=== PATIENT | female | born 1990 | race Caucasian/White ===

== ENCOUNTER → 2017-03-08 | Outpatient (CLI) | payer MEDICAID ==
[2017-03-08 14:27] LABS: Basophils % (A) 0 %; CH 32.6; CHCM 34.5; Eosinophils # (A) 0.1 k/uL (0-0.7); Eosinophils % (A) 1 %; HCT 34.1 % (34.0-46.0); HDW 2.97; HGB 11.4 gm/dL (11.4-16.0); Luc # (Auto) 0.17; Luc % (Auto) 2; Lymphocytes # (A) 1.2 k/uL (1.0-4.8); Lymphocytes % (A) 13 %; MCH 31.8 pg (25.0-35.0); MCHC 33.3 g/dL (31.0-37.0); MCV 95.4 fL (80.0-100.0); Mean Platelet Volume 7.3; Monocytes # (A) 0.6 k/uL (0-1.0); Monocytes % (A) 6 %; Neutrophils # (A) 6.9 k/uL (1.3-7.7); Neutrophils % (A) 77 %; RBC 3.58 m/uL (3.80-5.40); RDW 14.2 % (11.5-15.5); WBC 8.9 k/uL (3.8-10.6); WBC (Perox) 9.17
== END | disposition home or self-care (01) ==
LOC: LABWHC1 12:56
PROVIDERS: ATTEND Obstetrics & Gynecology
DX: O99.810 Abnormal glucose complicating pregnancy (principal); O99.019 Anemia complicating pregnancy, unspecified trimester; Z3A.00 Weeks of gestation of pregnancy not specified
CPT/HCPCS: 36415; 82950; 85025

== ENCOUNTER 2018-10-27 07:41 | Emergency (ER) | payer MEDICAID ==
--- NOTE | 2018-10-27 08:42 | ED ---
Female Urogenital HPI - General Chief complaint: Vaginal Bleeding Stated complaint: POSS MISCARRAGE, 10 WEEKS Time Seen by Provider: 10/27/18 07:51 Source: patient, RN notes reviewed Mode of arrival: ambulatory Limitations: no limitations - History of Present Illness Initial comments: This a 28-year-old female presents emergency Department with chief complaint of vaginal bleeding and . 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 Patient states isn't profuse amount of bleeding. Patient states that she is A0 and sees Dr. Mai for her [employer]. Patient is O+ blood type. Patient denies any current dysuria, cramping, abdominal pain, back pain. - Related Data Home Medications Medication Instructions Recorded Confirmed Pnv,Calcium 72/Iron/Folic Acid 1 tab PO DAILY 05/29/17 06/01/17 [ Plus Tablet] azaTHIOprine [Imuran] 50 mg PO DAILY 05/29/17 06/01/17 Allergies Allergy/AdvReac Type Severity Reaction Status Date / Time No Known Allergies Allergy Verified 10/27/18 07:49 Review of Systems ROS Statement: Those systems with pertinent positive or pertinent negative responses have been documented in the HPI. ROS Other: All systems not noted in ROS Statement are negative. Past Medical History Additional Past Medical History / Comment(s): Ulcerative Colitis, HSV History of Any Multi-Drug Resistant Organisms: None Reported Additional Past Surgical History / Comment(s): Colonoscopies Past Anesthesia/Blood Transfusion Reactions: No Reported Reaction Past Psychological History: No Psychological Hx Reported Smoking Status: Never smoker Past Alcohol Use History: None Reported Past Drug Use History: None Reported - Past Family History Mother Family Medical History: No Reported History General Exam Limitations: no limitations General appearance: alert, in no apparent distress Head exam: Present: atraumatic, normocephalic, normal inspection Neck exam: Present: normal inspection. Absent: tenderness, meningismus, lymphadenopathy Respiratory exam: Present: normal lung sounds bilaterally. Absent: respiratory distress, wheezes, rales, rhonchi, stridor Cardiovascular Exam: Present: regular rate, normal rhythm, normal heart sounds. Absent: systolic murmur, diastolic murmur, rubs, gallop, clicks GI/Abdominal exam: Present: soft, normal bowel sounds. Absent: distended, tenderness, guarding, rebound, rigid Neurological exam: Present: alert, oriented X3, CN II-XII intact Skin exam: Present: warm, dry, intact, normal color. Absent: rash Course Vital Signs 10/27/18 07:47 Temperature 98.4 F Pulse Rate 109 H Respiratory 20 Rate Blood Pressure 137/87 O2 Sat by Pulse 99 Oximetry Medical Decision Making - Medical Decision Making 20-year-old female presents emergency Department for vaginal bleeding and . Patient had an ultrasound which shows viable single IUP 10 weeks and 3 days, very large subchorionic bleed. This most is causing her symptoms at this time. She is to follow-up with [employer]. She has a positive blood type does not require RhoGAM. - Lab Data Result diagrams: 10/27/18 08:29 Lab Results 10/27/18 10/27/18 Range/Units 08:29 08:29 WBC 7.5 (3.8-10.6) k/uL RBC 4.47 (3.80-5.40) m/uL Hgb 13.6 (11.4-16.0) gm/dL Hct 40.2 (34.0-46.0) % MCV 90.0 (80.0-100.0) fL MCH 30.4 (25.0-35.0) pg MCHC 33.8 (31.0-37.0) g/dL RDW 14.2 (11.5-15.5) % Plt Count 213 (150-450) k/uL Neutrophils % 80 % Lymphocytes % 12 % Monocytes % 5 % Eosinophils % 1 % Basophils % 1 % Neutrophils # 6.0 (1.3-7.7) k/uL Lymphocytes # 0.9 L (1.0-4.8) k/uL Monocytes # 0.4 (0-1.0) k/uL Eosinophils # 0.1 (0-0.7) k/uL Basophils # 0.0 (0-0.2) k/uL Urine Color Red Urine Appearance Bloody H (Clear) Urine RBC >182 H (0-5) /hpf Ur Squamous Epith Cells 4 (0-4) /hpf Urine Bacteria Rare H (None) /hpf Hyaline Casts 38 H (0-2) /lpf Urine Mucus Many H (None) /hpf Urine Sperm Few H (None) /hpf Disposition Clinical Impression: Subchorionic bleed Disposition: HOME SELF-CARE Condition: Stable Instructions (If sedation given, give patient instructions): Subchorionic Hemorrhage (ED) Additional Instructions: Please return to the Emergency Department if symptoms worsen or any other concerns. Is patient prescribed a controlled substance at d/c from ED?: No Referrals: Carey Esqueda MD [Primary Care Provider] - 1-2 days Time of Disposition: 09:19
[2018-10-27 08:47] LABS: Basophils % (A) 1 %; Eosinophils # (A) 0.1 k/uL (0-0.7); Eosinophils % (A) 1 %; HCT 40.2 % (34.0-46.0); HGB 13.6 gm/dL (11.4-16.0); Lymphocytes # (A) 0.9 k/uL (1.0-4.8); Lymphocytes % (A) 12 %; MCH 30.4 pg (25.0-35.0); MCHC 33.8 g/dL (31.0-37.0); Mean Platelet Volume 7.2; Monocytes # (A) 0.4 k/uL (0-1.0); Monocytes % (A) 5 %; Neutrophils % (A) 80 %; Platelet Count 213 k/uL (150-450); RBC 4.47 m/uL (3.80-5.40); RDW 14.2 % (11.5-15.5); WBC 7.5 k/uL (3.8-10.6)
[2018-10-27 08:55] LABS: Bacteria,Urine Rare /hpf; Hyaline Casts,Urine 38 /lpf (0-2); Mucus,Urine Many /hpf; RBC,Urine >182 /hpf (0-5); Sperm,Urine Few /hpf; Squamous Epithelial Cell,Urine 4 /hpf (0-4)
--- NOTE | 2018-10-27 08:56 | US ---
EXAMINATION TYPE: Transabdominal DATE OF EXAM: 10/27/2018 8:46 AM COMPARISON: NONE CLINICAL HISTORY: Pain. Pt states heavy vaginal bleeding that started this AM EXAM PERFORMED: EXAM MEASUREMENTS: GESTATIONAL AGE / DATING Physician Established: Not yet established Dates by LMP: (10 weeks/2 days) EDC: 05/23/2019 Dates by First Scan: No prior Dates by Current Scan for: (10 weeks/3 days) EDC: 05/22/2019 MATERNAL ANATOMY Uterus: 14.1 x 7.6 x 9.6 cm Right Ovary: Unable to visualize Left Ovary: 3.3 x 2.6 x 2.1 cm Post CDS / Adnexa: wnl Presence of free fluid: No Presence of corpus luteal cyst: Left Ovary= 2.1 x 1.3 x 1.7 cm Presence of subchorionic bleed: Anterior to gestational sac, large bleed= 6.3 x 3.5 x 7.5 cm GESTATION / SURVEY CRL: 3.5 cm (10 weeks/3 days) MSD: wnl Heart Rate: 170 bpm Rhythm: Normal IUP: Viable IUP Date of LMP: 08/16/2018 Single, viable IUP, Large sub-chorionic bleed IMPRESSION: VIABLE INTRAUTERINE GESTATION WITH A GESTATIONAL AGE OF 10 WEEKS 3 DAYS +/- 5 DAYS. ESTIMATED DATE OF CONFINEMENT BASED ON THIS EXAMINATION IS 05/22/2019. PLEASE NOTE THE PRESENCE OF A LARGE SUBCHORIONIC BLEED.
[2018-10-27 09:01] LABS: Color,Urine Red
[2018-10-27 09:02] LABS: Appearance,Urine Bloody (Clear)
[2018-10-27 09:55] VITALS: BP 112/78; PULSE 86; RESP 18; TEMP 98.3
== END 2018-10-27 09:55 | disposition home or self-care (01) ==
LOC: EC 07:41
DX: O41.8X10 Other specified disorders of amniotic fluid and membranes, first trimester, not applicable or unspecified (principal); Z3A.10 10 weeks gestation of pregnancy
CPT/HCPCS: 36415; 76801; 81001; 84702; 85025; 99284

== ENCOUNTER → 2018-11-13 | Outpatient (CLI) | payer MEDICAID | END | disposition home or self-care (01) | LOC: LABWHC1 13:44 | PROVIDERS: ATTEND Physician Assistant | DX: Z11.1 Encounter for screening for respiratory tuberculosis (principal) | CPT/HCPCS: 36415; 86480 ==

== ENCOUNTER → 2018-11-13 | Outpatient (CLI) | payer MEDICAID ==
--- NOTE | 2018-11-13 15:42 | US ---
EXAMINATION TYPE: Transabdominal DATE OF EXAM: 11/13/2018 1:41 PM COMPARISON: US CLINICAL HISTORY: Z36 F/U previous abn O41.8x90. F/U prev sub-chorionic bleed, pt states still having light vaginal bleeding EXAM PERFORMED: Transabdominal (TA) EXAM MEASUREMENTS: GESTATIONAL AGE / DATING Physician Established: (12 weeks/5 days) EDC: 05/23/2019 Dates by LMP: (12 weeks/5 days) EDC: 05/23/2019 Dates by First Scan: (12 weeks/6 days) EDC: 05/22/2019 Dates by Current Scan for: (13 weeks/0 days) EDC: 05/21/2019 MATERNAL ANATOMY Uterus: 12.0 x 7.7 x 10.1 cm Right Ovary: 2.5 x 1.6 x 1.7 cm Left Ovary: 3.1 x 1.7 x 2.0 cm Post CDS / Adnexa: wnl Presence of free fluid: No Presence of corpus luteal cyst: Left Ovary= Presence of subchorionic bleed: Lower Uterine segment= 4.7 x 1.8 x 7.6 cm GESTATION / SURVEY CRL: 6.7 cm (13 weeks/0 days) Heart Rate: 162 bpm Rhythm: Normal IUP: Viable IUP Nuchal Translucency 10-14wks (normal less than 3mm): 2mm Single, viable IUP/ Sub-chorionic bleed appears similar in size when compared to previous, more hyp oechoic/ Questionable abnormality within the brain in images #15, 23, and 34 IMPRESSION: Subchorionic hemorrhage has evolved somewhat in the interval and is more hypoechoic. Single viable in trauterine corresponding to ultrasound age of 13 weeks 0 days with estimated date of delive ry 05/21/2019. Question abnormal appearance seen on images of the calvarium, follow-up survey r ecommended. A Yellow level critical message alert has been initiated for Arsenio Smith DO via the [employer] Critical Results System on 11/13/2018 3:40 PM. This message alert has been sent to Kelly Turner via the preferences provided by the clinician for the receipt of Radiology Critical Findings. Short Fuze ID [id number].
== END | disposition home or self-care (01) ==
LOC: RADUSWWP 13:26
PROVIDERS: ATTEND Obstetrics & Gynecology
DX: O41.8X90 Other specified disorders of amniotic fluid and membranes, unspecified trimester, not applicable or unspecified (principal); Z3A.13 13 weeks gestation of pregnancy
CPT/HCPCS: 76801; 76813

== ENCOUNTER → 2018-12-24 | Outpatient (CLI) | payer MEDICAID ==
[2018-12-24 09:42] LABS: HCT 39.4 % (34.0-46.0); HGB 12.8 gm/dL (11.4-16.0); MCH 29.9 pg (25.0-35.0); MCHC 32.6 g/dL (31.0-37.0); MCV 91.7 fL (80.0-100.0); Mean Platelet Volume 6.3; Platelet Count 240 k/uL (150-450); RBC 4.29 m/uL (3.80-5.40); RDW 13.7 % (11.5-15.5); WBC 7.8 k/uL (3.8-10.6)
[2018-12-24 19:00] LABS: African American GFR (CKD) 143.8 (60.0-200.0)
== END | disposition home or self-care (01) ==
LOC: LABWHC1 06:43
PROVIDERS: ATTEND Obstetrics & Gynecology
DX: Z34.82 Encounter for supervision of other normal pregnancy, second trimester (principal); K51.50 Left sided colitis without complications
CPT/HCPCS: 36415; 82565; 82947; 85027; 86762; 86780; 86850; 86900; 86901; 87340

== ENCOUNTER → 2019-02-18 | Outpatient (CLI) | payer MEDICAID ==
[2019-02-18 12:00] LABS: HCT 36.3 % (34.0-46.0); HGB 12.5 gm/dL (11.4-16.0); MCHC 34.4 g/dL (31.0-37.0); MCV 93.2 fL (80.0-100.0); Mean Platelet Volume 6.7; Platelet Count 216 k/uL (150-450); RDW 13.9 % (11.5-15.5); WBC 8.6 k/uL (3.8-10.6)
== END | disposition home or self-care (01) ==
LOC: LABWHC1 09:43
PROVIDERS: ATTEND Obstetrics & Gynecology
DX: Z34.82 Encounter for supervision of other normal pregnancy, second trimester (principal)
CPT/HCPCS: 36415; 82950; 85027

== ENCOUNTER → 2019-04-01 | Outpatient (CLI) | payer MEDICAID ==
--- NOTE | 2019-04-01 16:00 | US ---
EXAMINATION TYPE: US OB >= 14 wk fetus DATE OF EXAM: 04/01/2019 COMPARISON: US CLINICAL HISTORY: O36.63XO large for dates, third trimester, TECHNIQUE: Transabdominal (TA) GESTATIONAL AGE / DATING Physician Established: (32 weeks/4 days) EDC: 05/23/2019 Dates by LMP: (32 weeks/4 days) EDC: 05/23/2019 Dates by First Scan: (32 weeks/5 days) EDC: 05/22/2019 Dates by Current Scan: (32 weeks/2 days) EDC: 05/25/2019 Beta HCG (if available): NA SURVEY IUP: Single PLACENTA: Fundal posterior PREVIA: No Previa YUNIOR 17.8: cm Normal CERVICAL LENGTH (transabdominal: norm > 3.0cm): 3.1 cm BIOMETRY PRESENTATION: Vertex LIE: Longitudinal BPD: 8.0 cm 32 weeks / 0 days HC: 29.6 cm 32 weeks / 5 days AC: 28.4 cm 32 weeks / 3 days FL: 6.2 cm 32 weeks / 0 days ESTIMATED WEIGHT IN GRAMS: 1936.0 grams ESTIMATED WEIGHT IN LBS/OZ: 4 lbs. 4 oz. WEIGHT PERCENTAGE BASED ON ESTABLISHED DATES: 30.3% HC/AC: 1.04 Normal FL/AC: 21.68 Normal HEART RATE: 145 bpm RHYTHM: Normal Single, live IUP, 32 weeks/2 days, EDC: 05/25/2019, HR 145bpm. IMPRESSION: Single live intrauterine with a sonographic age of 32 weeks and 2 days and carlos manuel mated date of delivery of 05/25/2019. Weight percentage based on established dates of 30.3%. Amniotic fluid index measures 17.8 cm.
== END | disposition home or self-care (01) ==
LOC: RADUSWWP 14:54
PROVIDERS: ATTEND Obstetrics & Gynecology
DX: O36.63X0 Maternal care for excessive fetal growth, third trimester, not applicable or unspecified (principal); Z3A.32 32 weeks gestation of pregnancy
CPT/HCPCS: 76805

== ENCOUNTER 2019-05-03 01:29 | Outpatient (CLI) | payer MEDICAID ==
[2019-05-03 02:16] LABS: Appearance,Urine Clear (Clear); Bilirubin,Urine Negative (Negative); Blood,Urine Small (Negative); Color,Urine Yellow; Glucose,Urine (UA) Negative (Negative); Ketones,Urine Negative (Negative); Leukocyte Esterase,Urine Large (Negative); Mucus,Urine Rare /hpf; Nitrite,Urine Negative (Negative); Protein,Urine Negative (Negative); RBC,Urine 1 /hpf (0-5); Squamous Epithelial Cell,Urine 4 /hpf (0-4); Urobilinogen,Urine <2.0 mg/dL (<2.0); WBC,Urine 13 /hpf (0-5)
[2019-05-03 03:08] VITALS: BP 134/100; PULSE 107; RESP 18; TEMP 97.2
--- NOTE | 2019-05-04 08:00 | P.MSEPDOC ---
Presenting Problems - Arrival Data Date of Arrival on Unit: 05/03/19 Time of Arrival on Unit: 01:29 Mode of Transport: Ambulatory - Complaint OB-Reason for Admission/Chief Complaint: Possible Onset of Labor Comment: pt presents to triage for contractions and pelvic pressure Medical History - Information : 2 Para: 1 Term: 1 : 0 Abortions: Spontaneous or Elective: 0 Number of Living Children: 1 - Gestational Age Gestational Age by VIDA (wks/days): 37 Weeks and 1 Days - History Complications: GBS+ Review of Systems - Review of Systems Constitutional: No problems Breast: No problems ENT: No problems Cardiovascular: No problems Respiratory: No problems Gastrointestinal: No problems Genitourinary: No problems Musculoskeletal: No problems Neurological: No problems Skin: No problems Vital Signs - Temperature Temperature: 97.2 F Temperature Source: Temporal Artery Scan - Pulse Right Brachial Pulse Rate: 107 Pulse Assessment Method: Automatic Cuff - Respirations Respiratory Rate: 18 Oxygen Delivery Method: Room Air O2 Sat by Pulse Oximetry: 100 - Blood Pressure Right Arm Blood Pressure: 134/100 Blood Pressure Mean: 111 Blood Pressure Source: Automatic Cuff Medical Screen Scoring (Pre) - Cervical Exam Dilation: 4-7 cm = 2 Effacement: More than 50% = 2 Membranes: Intact - Uterine Contractions Frequency: > 5 minutes apart = 1 Duration: > 40 seconds = 2 Intensity: N/A - Maternal Vital Signs Maternal Temperature: N/A Maternal Blood Pressure: Diastolic > 89 = 1 Signs of Preeclampsia: N/A Maternal Respirations: N/A - Maternal Trauma Maternal Trauma: N/A - Assessment - Baby A Baseline FHR: 150 Heart Rate - NICHD Category: Category I (Normal) = 0 NST: Reactive Position: N/A Station: N/A - Total Score - Baby A Total Score - Baby A: 8 - Total Score - Baby B Total Score - Baby B: 8 - Total Score - Baby C Total Score - Baby C: 8 - Level of Risk - Baby A Level of Risk - Baby A: Medium (6-9) - Level of Risk - Baby B Level of Risk - Baby B: Medium (6-9) - Level of Risk - Baby C Level of Risk - Baby C: Medium (6-9) Physician Notification (Pre) - Physician Notified Physician Notified Date: 05/03/19 Physician Notified Time: 02:17 New Order Received: Yes - Notification Comment Comment: ua was sent, no protein noted, serial bp's done, pressures came down, no cervical manager of change an hour, pt discharged home with review of s/s of labor, kick counts and symptoms to watch for and return for evaluation for preeclampsia Disposition - Disposition OB Disposition: Triage, Discharge to home Discharge Date: 05/03/19 Discharge Time: 02:50 I agree with the RN Medical Screening Exam: Yes Risk & Benefit of care provided described in d/c instruction: Yes Diagnosis: FALSE LABOR AT OR AFTER 37 COMPLETED WEEKS OF GESTATION
== END 2019-05-03 02:50 | disposition home or self-care (01) ==
LOC: FBPOP 01:29
PROVIDERS: ATTEND Obstetrics & Gynecology
DX: O47.1 False labor at or after 37 completed weeks of gestation (principal); Z3A.37 37 weeks gestation of pregnancy
CPT/HCPCS: 59025; 81001; 99213

== ENCOUNTER 2019-05-04 03:05 | Inpatient (IN) | payer MEDICAID ==
[2019-05-04] MEDS ORDERED: AMPICILLIN 2,000 MG in SODIUM CHLORIDE 0.9% 100 ML IVPB STA (03:36)
[2019-05-04] MEDS ORDERED: CARBOPROST TROMETHAMINE 250 MCG/ML 1 ML AMP IM PRN (03:36)
[2019-05-04] MEDS ORDERED: TERBUTALINE 1 MG/ML VIAL SQ PRN (03:36)
[2019-05-04] MEDS ORDERED: METHYLERGONOVINE 0.2 MG/ML 1 ML AMP IM PRN (03:36)
[2019-05-04] MEDS ORDERED: LIDOCAINE 0.5% (PF) 5 MG/ML (50 ML SDV) SQ PRN (03:36)
[2019-05-04] MEDS ORDERED: OXYTOCIN 10 UNIT/ML 1 ML VIAL IM PRN (03:36)
[2019-05-04] MEDS ORDERED: LACTATED RINGERS 1,000 ML IV SCH (03:45)
[2019-05-04] MEDS ORDERED: OXYTOCIN 30 UNITS/500 ML NS 30 UNIT in SALINE 1 500ML.BAG IV SCH (03:45)
[2019-05-04 04:12] LABS: Basophils % (A) 1 %; Eosinophils # (A) 0.1 k/uL (0-0.7); Eosinophils % (A) 1 %; HCT 36.5 % (34.0-46.0); HGB 12.4 gm/dL (11.4-16.0); Lymphocytes # (A) 1.2 k/uL (1.0-4.8); Lymphocytes % (A) 17 %; MCHC 33.9 g/dL (31.0-37.0); MCV 91.3 fL (80.0-100.0); Mean Platelet Volume 7.2; Monocytes # (A) 0.5 k/uL (0-1.0); Monocytes % (A) 7 %; Neutrophils # (A) 5.2 k/uL (1.3-7.7); Neutrophils % (A) 73 %; Platelet Count 197 k/uL (150-450); RDW 13.2 % (11.5-15.5); WBC 7.2 k/uL (3.8-10.6)
[2019-05-04 04:53] VITALS: BMI 22.1
[2019-05-04] MEDS ORDERED: ROPIVACAINE 5MG/ML 20ML VIAL ONE (06:05)
[2019-05-04] MEDS ORDERED: SODIUM CHLORIDE 0.9% 100 ML BAG ONE (06:05)
[2019-05-04] MEDS ORDERED: fentaNYL (PF) 50 MCG/ML 5 ML AMP ONE (06:05)
--- NOTE | 2019-05-04 06:54 | P.HPOB ---
History of Present Illness H&P Date: 05/04/19 Chief Complaint: Spontaneous rupture membranes This is a 28-year-old female 2 para 1 with an estimated date of confinement of 05/23/2019, estimated gestational age of 37-2/7 weeks, who presented to labor and delivery with complaints of spontaneous rupture membranes at approximately 2 AM this morning. She denies feeling any regular contractions at that time. course has been uncomplicated and has been with Dr. Smith. labs: Blood type-O+ Antibody screen-negative Hemoglobin-12.8 Hepatitis B surface antigen-nonreactive Rubella-immune Random glucose-67 Syphilis antibody-nonreactive 1 hour Glucola-P3 Group B streptococcus-positive Obstetrical history: . History of 1 vaginal delivery at term. Gynecologic history: History of herpes. Social history: She is single. She works as an RN. Review of Systems Constitutional: Denies chills, Denies fever Eyes: denies blurred vision, denies pain Ears, nose, mouth and throat: Denies headache, Denies sore throat Cardiovascular: Denies chest pain, Denies shortness of breath Respiratory: Denies cough Gastrointestinal: Reports abdominal pain Genitourinary: Reports pelvic pain, Reports Musculoskeletal: Reports low back pain Integumentary: Denies pruritus, Denies rash Neurological: Denies numbness, Denies weakness Psychiatric: Denies anxiety, Denies depression Past Medical History Additional Past Medical History / Comment(s): Ulcerative Colitis, HSV History of Any Multi-Drug Resistant Organisms: None Reported Past Surgical History: No Surgical Hx Reported Additional Past Surgical History / Comment(s): Colonoscopies Past Anesthesia/Blood Transfusion Reactions: No Reported Reaction Past Psychological History: No Psychological Hx Reported Smoking Status: Never smoker Past Alcohol Use History: None Reported Past Drug Use History: None Reported - Past Family History Mother Family Medical History: No Reported History Medications and Allergies Home Medications Medication Instructions Recorded Confirmed Type Pnv,Calcium 72/Iron/Folic Acid 1 tab PO DAILY 05/29/17 05/04/19 History [ Plus Tablet] azaTHIOprine [Imuran] 50 mg PO DAILY 05/29/17 05/04/19 History Acyclovir 400 mg PO BID 05/03/19 05/04/19 History Loratadine [Claritin] 10 mg PO DAILY 05/03/19 05/04/19 History Allergies Allergy/AdvReac Type Severity Reaction Status Date / Time No Known Allergies Allergy Verified 05/04/19 03:14 Exam Osteopathic Statement: *. No significant issues noted on an osteopathic structural exam other than those noted in the History and Physical/Consult. Vital Signs Temp Pulse Resp BP Pulse Ox 05/04/19 03:36 97.3 F L 75 16 138/84 99 05/04/19 03:35 97.2 F L 75 16 138/84 99 Intake and Output 05/03/19 05/03/19 05/04/19 14:59 22:59 06:59 Other: Weight 73.936 kg HEENT: Within normal limits Heart: Regular rate and rhythm Lungs: Clear to auscultation bilaterally Abdomen: Cervix: Initially is 4 cm/50%/-2 station with grossly ruptured clear fluid and p ositive amnisure heart tones: Reactive Contractions: Irregular every 2-5 minutes Extremities: Negative Homans Results Result Diagrams: 05/04/19 04:00 Assessment and Plan (1) 37 weeks gestation of Current Visit: Yes Status: Acute Code(s): Z3A.37 - 37 WEEKS GESTATION OF SNOMED Code(s): 00978668 (2) Group B Streptococcus carrier, +RV culture, currently Current Visit: Yes Status: Acute Code(s): O99.820 - STREPTOCOCCUS B CARRIER STATE COMPLICATING SNOMED Code(s): 0578788955561 (3) Spontaneous rupture of membranes Current Visit: Yes Status: Acute Code(s): FAN4114 - SNOMED Code(s): 120084416 Plan: Admission for active labor. Oxytocin augmentation of labor. Antibiotic prophylaxis for group B streptococcus. Epidural anesthesia if desired. Expectant management.
--- NOTE | 2019-05-04 07:14 | P.PROBDLV ---
Vaginal Delivery Note - . Vaginal Delivery Note: The patient progressed to complete dilation fairly rapidly after epidural anesthesia. She began pushing and 's head came to a crown. With one further push, the 's head delivered across the perineum followed by the remainder the body and the was placed on mother's abdomen. Cord was clamped and cut and infant was taken to warmer for evaluation. A viable male is noted with scores of 9 at 1 minute and 9 at 5 minutes. Infant weight is pending at this time. Placenta delivered almost immediately after baby, intact, with a three-vessel cord. Uterus contracted well after oxytocin was given and uterine massage was carried out. Inspection of the perineum revealed no perineal lacerations. Estimated blood loss is approximately 150 mL's. Both mother and infant are in stable condition.
[2019-05-04] MEDS ORDERED: ACETAMINOPHEN TAB 325 MG TAB PO PRN (07:28)
[2019-05-04] MEDS ORDERED: diphenhydrAMINE 50 MG/ML 1 ML VIAL IVP PRN ×2 (07:28)
[2019-05-04] MEDS ORDERED: ZOLPIDEM 5 MG TAB PO PRN (07:28)
[2019-05-04] MEDS ORDERED: HYDROCORTISONE 2.5% RECTAL CREAM 30 GM TUBE RECTAL PRN (07:28)
[2019-05-04] MEDS ORDERED: SIMETHICONE 80 MG CHEWABLE PO PRN (07:28)
[2019-05-04] MEDS ORDERED: BENZOCAINE/MENTHOL SPRAY 1 GM/SPRAY AEROSOL TOPICAL PRN (07:28)
[2019-05-04] MEDS ORDERED: diphenhydrAMINE 25 MG CAP PO PRN (07:28)
[2019-05-04] MEDS ORDERED: diphenhydrAMINE 50 MG CAP PO PRN (07:28)
[2019-05-04] MEDS ORDERED: LANOLIN CREAM 5 GM TUBE TOPICAL PRN (07:28)
[2019-05-04] MEDS ORDERED: OXYTOCIN 20 UNITS/1000 ML NS 1,000 ML IV SCH (07:28)
[2019-05-04] MEDS ORDERED: WITCH HAZEL 1 EACH MED..PAD TOPICAL PRN (07:28)
[2019-05-04] MEDS ORDERED: AMPICILLIN 1,000 MG in SODIUM CHLORIDE 0.9% 50 ML IVPB SCH (07:37)
[2019-05-04] MEDS: IBUPROFEN 600 MG TAB PO PRN ×2 (08:58→16:40)
[2019-05-04] MEDS ORDERED: LORATADINE 10 MG TAB PO SCH ×2 (09:00→21:00)
[2019-05-04] MEDS ORDERED: azaTHIOprine 50 MG TAB PO SCH ×2 (09:00→21:00)
[2019-05-04] MEDS ORDERED: ACYCLOVIR 200 MG CAP PO SCH (09:00)
[2019-05-04] MEDS: SENNOSIDES-DOCUSATE SODIUM 1 EACH TAB PO SCH ×2 (09:41→20:59)
[2019-05-04] MEDS: PRENATAL VIT-IRON-FOLIC ACID 1 EACH CAP PO SCH (09:41)
[2019-05-05 00:25] VITALS: RESP 16
[2019-05-05 07:47] LABS: Basophils # (A) 0.1 k/uL (0-0.2); Basophils % (A) 1 %; Eosinophils # (A) 0.1 k/uL (0-0.7); Eosinophils % (A) 1 %; HGB 11.5 gm/dL (11.4-16.0); Lymphocytes # (A) 1.2 k/uL (1.0-4.8); Lymphocytes % (A) 15 %; MCH 31.3 pg (25.0-35.0); MCHC 33.9 g/dL (31.0-37.0); MCV 92.4 fL (80.0-100.0); Mean Platelet Volume 7.2; Monocytes # (A) 0.5 k/uL (0-1.0); Monocytes % (A) 6 %; Neutrophils # (A) 6.1 k/uL (1.3-7.7); Neutrophils % (A) 76 %; Platelet Count 172 k/uL (150-450); RBC 3.68 m/uL (3.80-5.40); RDW 13.3 % (11.5-15.5); WBC 7.9 k/uL (3.8-10.6)
[2019-05-05] MEDS: SENNOSIDES-DOCUSATE SODIUM 1 EACH TAB PO SCH (08:19)
--- NOTE | 2019-05-05 09:05 | P.DS ---
Providers Date of admission: 05/04/19 03:28 Expected date of discharge: 05/05/19 Attending physician: Arsenio Smith Primary care physician: Stated None Hospital Course: Annetta is doing very well post day 1. She is ambulating, voiding and tolerating her diet. She voices no complaints and is requesting discharge to home today. An isolated mildly elevated blood pressure was noted but all the blood pressures are normal and she has no signs or symptoms of preeclampsia or other issues. Discharge instructions were thoroughly reviewed and all questions were answered for her prior to her discharge. On physical exam vital signs are stable and afebrile. Heart regular, lungs clear, extremities without pain. Abdomen soft uterus is firm and lochia is reported to be light. Assessment day 1. Plan discharged home follow up with me in 6 weeks. Patient Condition at Discharge: Good Plan - Discharge Summary New Discharge Prescriptions: No Action Pnv,Calcium 72/Iron/Folic Acid [ Plus Tablet] 1 tab PO DAILY azaTHIOprine [Imuran] 50 mg PO DAILY Acyclovir 400 mg PO BID Loratadine [Claritin] 10 mg PO DAILY Mesalamine [Canasa] 1,000 mg HS Discharge Medication List Pnv,Calcium 72/Iron/Folic Acid [ Plus Tablet] 1 tab PO DAILY 05/29/17 [History] azaTHIOprine [Imuran] 50 mg PO DAILY 05/29/17 [History] Acyclovir 400 mg PO BID 05/03/19 [History] Loratadine [Claritin] 10 mg PO DAILY 05/03/19 [History] Mesalamine [Canasa] 1,000 mg RC HS 05/04/19 [History] Follow up Appointment(s)/Referral(s): Arsenio Smith DO [Doctor of Osteopathic Medicine] - 6 Weeks Activity/Diet/Wound Care/Special Instructions: No heavy lifting, limit stairs and driving, and pelvic rest. If any high temperatures, heavy bleeding, or severe pain call my office Discharge Disposition: HOME SELF-CARE
[2019-05-05] MEDS: PRENATAL VIT-IRON-FOLIC ACID 1 EACH CAP PO SCH (09:18)
[2019-05-05] MEDS: IBUPROFEN 600 MG TAB PO PRN (10:26)
[2019-05-05 16:10] VITALS: BP 122/72; PULSE 74; TEMP 98.2
== END 2019-05-05 16:45 | disposition home or self-care (01) | DRG 806 ==
LOC: FBPOP 03:05 → 4FBP 03:28
PROVIDERS: ADMIT Obstetrics & Gynecology; ATTEND Obstetrics & Gynecology
PROC: 10E0XZZ Delivery of Products of Conception, External Approach (ICD-10-PCS; principal; 2019-05-04)
PROC: 00HU33Z Insertion of Infusion Device into Spinal Canal, Percutaneous Approach (ICD-10-PCS; 2019-05-04)
PROC: 3E0R3BZ Introduction of Anesthetic Agent into Spinal Canal, Percutaneous Approach (ICD-10-PCS; 2019-05-04)
DX: O99.824 Streptococcus B carrier state complicating childbirth (principal); K51.90 Ulcerative colitis, unspecified, without complications; Z37.0 Single live birth; B95.1 Streptococcus, group B, as the cause of diseases classified elsewhere; Z3A.37 37 weeks gestation of pregnancy; O99.62 Diseases of the digestive system complicating childbirth; Z79.899 Other long term (current) drug therapy; Z86.19 Personal history of other infectious and parasitic diseases
CPT/HCPCS: 59025; 84112; 85025; 86850; 86900; 86901; 88307; 99213

== ENCOUNTER 2019-11-21 03:50 | Emergency (ER) | payer MEDICAID ==
[2019-11-21 03:57] VITALS: RESP 18; TEMP 98.5
--- NOTE | 2019-11-21 04:35 | ED ---
Arrhythmia/Palpitations HPI - General Chief Complaint: Arrhythmia/Palpitations Stated Complaint: Palpitation Time Seen by Provider: 11/21/19 04:12 Source: patient Mode of arrival: ambulatory Limitations: no limitations - History of Present Illness Initial Comments: This patient is a 29-year-old woman presenting to be evaluated for palpitations and anxiety. Patient states that she has had this going back for months, but the symptoms for this recurrence of been going on for number days. She is not having chest pain, dyspnea, diaphoresis, nausea or vomiting. MD Complaint: palpitations -: days(s) Context: occurred during rest Associated Symptoms: denies other symptoms - Related Data Home Medications Medication Instructions Recorded Confirmed Pnv,Calcium 72/Iron/Folic Acid 1 tab PO DAILY 05/29/17 05/04/19 [ Plus Tablet] azaTHIOprine [Imuran] 50 mg PO DAILY 05/29/17 05/04/19 Acyclovir 400 mg PO BID 05/03/19 05/04/19 Loratadine [Claritin] 10 mg PO DAILY 05/03/19 05/04/19 Mesalamine [Canasa] 1,000 mg RC HS 05/04/19 05/04/19 Allergies Allergy/AdvReac Type Severity Reaction Status Date / Time No Known Allergies Allergy Verified 11/21/19 03:57 Review of Systems ROS Statement: Those systems with pertinent positive or pertinent negative responses have been documented in the HPI. ROS Other: All systems not noted in ROS Statement are negative. Constitutional: Denies: fever, chills Respiratory: Denies: cough, dyspnea Cardiovascular: Reports: palpitations. Denies: chest pain, orthopnea, edema Gastrointestinal: Denies: abdominal pain, vomiting, diarrhea Skin: Denies: rash Neurological: Denies: headache, weakness, numbness Psychiatric: Reports: anxiety. Denies: depression Past Medical History Additional Past Medical History / Comment(s): Ulcerative Colitis, HSV History of Any Multi-Drug Resistant Organisms: None Reported Past Surgical History: No Surgical Hx Reported Additional Past Surgical History / Comment(s): Colonoscopies Past Anesthesia/Blood Transfusion Reactions: No Reported Reaction Past Psychological History: No Psychological Hx Reported Smoking Status: Never smoker Past Alcohol Use History: None Reported Past Drug Use History: None Reported - Past Family History Mother Family Medical History: No Reported History General Exam Limitations: no limitations General appearance: alert, in no apparent distress Head exam: Present: atraumatic, normocephalic Eye exam: Present: normal appearance. Absent: scleral icterus, conjunctival injection ENT exam: Present: normal oropharynx Neck exam: Present: normal inspection, full ROM Respiratory exam: Present: normal lung sounds bilaterally. Absent: respiratory distress, wheezes, rales, rhonchi, stridor Cardiovascular Exam: Present: regular rate, normal rhythm, normal heart sounds. Absent: systolic murmur, diastolic murmur, rubs, gallop GI/Abdominal exam: Present: soft. Absent: distended, tenderness, guarding, rebound, rigid, mass Extremities exam: Present: normal inspection, normal capillary refill. Absent: pedal edema, calf tenderness Back exam: Present: normal inspection. Absent: CVA tenderness (R), CVA tenderness (L) Neurological exam: Present: alert Skin exam: Present: warm, dry, intact, normal color. Absent: rash Course Vital Signs 11/21/19 11/21/19 03:53 06:48 Temperature 98.5 F Pulse Rate 105 H 77 Respiratory 18 18 Rate Blood Pressure 134/91 110/74 O2 Sat by Pulse 100 97 Oximetry EKG Findings - EKG Results: EKG: sinus rhythm (With sinus arrhythmia, rate 98 bpm), normal axis, normal QRS, normal ST/T - Blocks, [place], Hypertrophy, ST Abn: Repolarization changes or abnormalities: Q-T interval prolongation Medical Decision Making - Lab Data Result diagrams: 11/21/19 04:20 11/21/19 04:20 Lab Results 11/21/19 11/21/19 11/21/19 Range/Units 04:20 04:20 05:01 WBC 5.6 (3.8-10.6) k/uL RBC 4.68 (3.80-5.40) m/uL Hgb 14.0 (11.4-16.0) gm/dL Hct 43.0 (34.0-46.0) % MCV 92.0 (80.0-100.0) fL MCH 30.0 (25.0-35.0) pg MCHC 32.6 (31.0-37.0) g/dL RDW 12.5 (11.5-15.5) % Plt Count 193 (150-450) k/uL Neutrophils % 75 % Lymphocytes % 16 % Monocytes % 6 % Eosinophils % 1 % Basophils % 1 % Neutrophils # 4.2 (1.3-7.7) k/uL Lymphocytes # 0.9 L (1.0-4.8) k/uL Monocytes # 0.3 (0-1.0) k/uL Eosinophils # 0.0 (0-0.7) k/uL Basophils # 0.0 (0-0.2) k/uL Sodium 134 L (137-145) mmol/L Potassium 5.1 (3.5-5.1) mmol/L Chloride 105 (98-107) mmol/L Carbon Dioxide 17 L (22-30) mmol/L Anion Gap 12 mmol/L BUN 8 (7-17) mg/dL Creatinine 0.56 (0.52-1.04) mg/dL Est GFR (CKD-EPI)AfAm >90 (>60 ml/min/1.73 sqM) Est GFR (CKD-EPI)NonAf >90 (>60 ml/min/1.73 sqM) Glucose 141 H (74-99) mg/dL Calcium 9.4 (8.4-10.2) mg/dL Total Bilirubin 1.2 (0.2-1.3) mg/dL AST 39 H (14-36) U/L ALT 13 (4-34) U/L Alkaline Phosphatase 72 (38-126) U/L Total Protein 8.2 (6.3-8.2) g/dL Albumin 4.9 (3.5-5.0) g/dL TSH 1.700 (0.465-4.680) mIU/L Urine Color Light Yellow Urine Appearance Clear (Clear) Urine pH 6.5 (5.0-8.0) Ur Specific [place] 1.003 (1.001-1.035) Urine Protein Negative (Negative) Urine Glucose (UA) Negative (Negative) Urine Ketones Negative (Negative) Urine Blood Negative (Negative) Urine Nitrite Negative (Negative) Urine Bilirubin Negative (Negative) Urine Urobilinogen <2.0 (<2.0) mg/dL Ur Leukocyte Esterase Negative (Negative) Urine HCG, Qual (Not Detectd) 11/21/19 Range/Units 05:01 WBC (3.8-10.6) k/uL RBC (3.80-5.40) m/uL Hgb (11.4-16.0) gm/dL Hct (34.0-46.0) % MCV (80.0-100.0) fL MCH (25.0-35.0) pg MCHC (31.0-37.0) g/dL RDW (11.5-15.5) % Plt Count (150-450) k/uL Neutrophils % % Lymphocytes % % Monocytes % % Eosinophils % % Basophils % % Neutrophils # (1.3-7.7) k/uL Lymphocytes # (1.0-4.8) k/uL Monocytes # (0-1.0) k/uL Eosinophils # (0-0.7) k/uL Basophils # (0-0.2) k/uL Sodium (137-145) mmol/L Potassium (3.5-5.1) mmol/L Chloride (98-107) mmol/L Carbon Dioxide (22-30) mmol/L Anion Gap mmol/L BUN (7-17) mg/dL Creatinine (0.52-1.04) mg/dL Est GFR (CKD-EPI)AfAm (>60 ml/min/1.73 sqM) Est GFR (CKD-EPI)NonAf (>60 ml/min/1.73 sqM) Glucose (74-99) mg/dL Calcium (8.4-10.2) mg/dL Total Bilirubin (0.2-1.3) mg/dL AST (14-36) U/L ALT (4-34) U/L Alkaline Phosphatase (38-126) U/L Total Protein (6.3-8.2) g/dL Albumin (3.5-5.0) g/dL TSH (0.465-4.680) mIU/L Urine Color Urine Appearance (Clear) Urine pH (5.0-8.0) Ur Specific [place] (1.001-1.035) Urine Protein (Negative) Urine Glucose (UA) (Negative) Urine Ketones (Negative) Urine Blood (Negative) Urine Nitrite (Negative) Urine Bilirubin (Negative) Urine Urobilinogen (<2.0) mg/dL Ur Leukocyte Esterase (Negative) Urine HCG, Qual Detected (Not Detectd) Disposition Clinical Impression: Palpitations Disposition: HOME SELF-CARE Condition: Good Instructions (If sedation given, give patient instructions): Heart Palpitations (ED) Is patient prescribed a controlled substance at d/c from ED?: No Referrals: Shania Sheikh DO [Primary Care Provider] - 1-2 days
[2019-11-21 05:08] LABS: Basophils % (A) 1 %; Eosinophils % (A) 1 %; Lymphocytes # (A) 0.9 k/uL (1.0-4.8); Lymphocytes % (A) 16 %; MCHC 32.6 g/dL (31.0-37.0); Mean Platelet Volume 7.9; Monocytes # (A) 0.3 k/uL (0-1.0); Monocytes % (A) 6 %; Neutrophils # (A) 4.2 k/uL (1.3-7.7); Neutrophils % (A) 75 %; Platelet Count 193 k/uL (150-450); RBC 4.68 m/uL (3.80-5.40); RDW 12.5 % (11.5-15.5); WBC 5.6 k/uL (3.8-10.6)
[2019-11-21 05:15] LABS: Appearance,Urine Clear (Clear); Bilirubin,Urine Negative (Negative); Blood,Urine Negative (Negative); Color,Urine Light Yellow; Glucose,Urine (UA) Negative (Negative); Ketones,Urine Negative (Negative); Leukocyte Esterase,Urine Negative (Negative); Nitrite,Urine Negative (Negative); PH, Urine 6.5 (5.0-8.0); Protein,Urine Negative (Negative); Specific Gravity,Urine 1.003 (1.001-1.035); Urobilinogen,Urine <2.0 mg/dL (<2.0)
[2019-11-21 05:20] LABS: ALT 13 U/L (4-34); AST 39 U/L (14-36); African American GFR (CKD) >90 (>60 ml/min/1.73 sqM); Albumin 4.9 g/dL (3.5-5.0); Alkaline Phosphatase 72 U/L (38-126); Anion Gap 12 mmol/L; Blood Urea Nitrogen 8 mg/dL (7-17); Calcium 9.4 mg/dL (8.4-10.2); Carbon Dioxide 17 mmol/L (22-30); Chloride 105 mmol/L (98-107); Glucose 141 mg/dL (74-99); Non-African American GFR(CKD) >90 (>60 ml/min/1.73 sqM); Sodium 134 mmol/L (137-145); Total Bilirubin 1.2 mg/dL (0.2-1.3); Total Protein 8.2 g/dL (6.3-8.2)
[2019-11-21 05:56] LABS: Potassium 5.1 mmol/L (3.5-5.1)
[2019-11-21] MEDS ORDERED: LORazepam 1 MG TAB PO STA (06:26)
[2019-11-21 06:50] VITALS: BP 110/74; PULSE 77
== END 2019-11-21 06:44 | disposition home or self-care (01) ==
LOC: EC 03:50
DX: R00.2 Palpitations (principal); F41.9 Anxiety disorder, unspecified; Z79.899 Other long term (current) drug therapy; Z98.890 Other specified postprocedural states; Z87.19 Personal history of other diseases of the digestive system
CPT/HCPCS: 36415; 80053; 81003; 81025; 84443; 85025; 93005; 99285

== ENCOUNTER 2023-02-23 11:42 | Day surgery (SDC) | payer BC ==
[2023-02-20 13:41] VITALS: BMI 18.8
[2023-02-23] MEDS ORDERED: ONDANSETRON 4 MG/2 ML VIAL IVP PRN (12:25)
[2023-02-23] MEDS ORDERED: LIDOCAINE 1% (10MG/ML) FOR IV START INTRADERMA PRN (12:25)
[2023-02-23] MEDS ORDERED: LACTATED RINGERS 1,000 ML IV SCH (12:25)
[2023-02-23 12:32] VITALS: RESP 16; TEMP 98.4
[2023-02-23] MEDS ORDERED: PROPOFOL 10 MG/ML 20 ML VIAL IV ONE (13:11)
--- NOTE | 2023-02-23 13:38 | P.PCN ---
Date of Procedure: 02/23/23 Procedure(s) Performed: BRIEF HISTORY: Patient is a 32-year-old pleasant white female scheduled for an elective colonoscopy as a part of surveillance of long-standing history of ulcerative colitis diagnosed in 2014. She is been having a flareup for the last 2 months with 15-20 bowel movements daily with blood and mucus in the stool. She was started on RINVOQ a month ago and has been in clinical remission. she has one to 2 bowel movements daily with no blood or mucus in the stool.Prior tp that she was on Humira for 18 monthsbut she stopped about 2 years ago because of side effects. PROCEDURE PERFORMED: Colonoscopywith random biopsy. PREOPERATIVE DIAGNOSIS: long-standing history of ulcerative colitis. IV sedation per Anesthesia. PROCEDURE: After informed consent was obtained, the patient, was brought into the endoscopy unit. IV sedation was administered by Anesthesia under continuous monitoring. Digital rectal examination was normal. Initially the Olympus CF-160 flexible video colonoscope was then inserted in the rectum, gradually advanced into the cecum without any difficulty. Careful examination was performed as the scope was gradually being withdrawn. Ileocecal valve and the appendiceal orifice were visualized and appeared normal. Prep was excellent. Mucosa of the cecum, ascending colon, transverse colon, descending colon, sigmoid colon, and rectum appeared normal. Retroflexion was performed in the rectum and no lesions were seen. The patient tolerated the procedure well. 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 She was advised to follow with the biopsy results. She will be seen in office in 2 weeks and will discuss about biologics for maintenance therapy of ulcerative colitis.
[2023-02-23 13:47] VITALS: PULSE 80
[2023-02-23 13:59] VITALS: BP 129/75
== END 2023-02-23 14:13 | disposition home or self-care (01) ==
LOC: ORWHC2ENDO 11:42
PROVIDERS: ATTEND Internal Medicine Gastroenterology
DX: K51.90 Ulcerative colitis, unspecified, without complications (principal); Z87.19 Personal history of other diseases of the digestive system
CPT/HCPCS: 81025; 88305; 45380; J2704